=== PATIENT | female | born 2005 | race American Indian/Alaskan Native ===

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

== ENCOUNTER 2024-03-12 16:05 | Outpatient (AMB) | payer OTHER, SELFPAY ==
--- NOTE | 2024-03-12 16:05 | A.OFFPC_ITS ---
Vital Signs 03/12/24 16:06 Height 4 ft 11 in Weight 167 lb 6 oz BMI 33.8 BP 100/74 Blood Pressure Location Rt brachial Position Sitting Respiration 14 Pulse 105 H Pulse Source Pulse Oximeter Temp 97.6 F Temp Source Temporal Artery Scan Pulse Oximetry (%) 98 Oxygen Delivery Method Room Air Intake Visit Reasons: Ear Chek Bottle House Pumper Required: No Accompanied by: Aunt Allergies No Known Allergies Allergy (Verified 03/12/24 16:17) Medication List - Last Reconciled 03/12/24 by Joey Bailon CNP albuterol sulfate 90 mcg/actuation (Ventolin HFA) 2 puffs PO Q4-6H PRN inhalational spacing device (Aerochamber MV spacer) As directed trazodone 50 mg PO BEDTIME PRN Tobacco use date assessed: 03/12/24 Dental Screening Dental Screen Date: 03/12/24 Did you have a dental visit in the last 12 months?: No Did you have a dental problem in the last 6 months where you did not have access to dental care?: No Was dental information given to patient?: Yes HPI HPI Comments History of Present Illness Details 18-year-old female, accompanied by her a unt, presents with complaints of clogged left ear for the past 1 week. She notes associate mild pain in the ear and left sided headache. She has been taking ibuprofen 800 mg was daily as needed. No hearing impairment. No fever, chills, body aches, fatigue or weakness. [facility] Medical History (Updated 03/12/24 @ 16:24 by Joey Bailon CNP) Encounter to establish care Branchial cleft cyst Mild intermittent asthma Depression Surgical History (Updated 03/12/24 @ 16:14 by SUSHMA Buckner) History of biopsy No pertinent past surgical history Family History Mother Asthma Social History Household Members: Family Both parents involved: Yes Caregiver staying overnight: No Housing: Apartment Are you a primary daycare manager to a significant other at home: No Do you presently have visiting nurse or other home services: No 75 years or older and lives alone: No Alcohol intake: never Patient Tobacco Use Status: Never used Tobacco e-Cigarette/Vaping Use: Former Use Second Hand Smoke Exposure: No service: No Current occupational status: unemployed Cognitive needs: No Hearing needs: No Vision needs: Yes Questionnaire Thrive Questionnaire Date Thrive assessed: 12/30/22 HIRAM-7 AMB Questionnaire HIRAM-7 Date HIRAM - 7 assessed: 12/30/22 Source: Developed by Drs. Lang Sauer, Kathy Birmingham, Barry Lay and colleagues, with an educational shree from [employer]. Review of Systems Const Details: Const Denies chills, Denies fatigue, Denies fever(s), Reports headache(s) and Denies weakness ENT Reports as per HPI Card Denies chest pain, Denies lightheadedness, Denies dyspnea and Denies other (Palpitations) Resp Denies cough, Denies dyspnea, Denies wheezing and Denies other ( shortness of breath) GI Denies abdominal pain, Denies melena, Denies hematochezia, Denies change in bowel habits, Denies dyspepsia and Denies nausea Denies hematuria and Denies dysuria Musc Denies abnormal gait, Denies myalgias, Denies arthralgias, Denies numbness and Denies tingling Skin/Breast Denies rash, Denies unusual bruising and Denies wounds Neuro Denies abnormal gait, Denies dizziness, Denies headache(s), Denies memory loss, Denies numbness, Denies Sensory deficit (Neuro), Denies tingling and Denies weakness Psych Denies anxiety, Denies depression, Denies memory loss Endo Denies cold intolerance, Denies fatigue, Denies heat intolerance, Denies polydipsia and Denies polyuria Aller/Immun Denies wheezing Physical exam (Primary Care) Vital Signs: Last Vital Signs Temp 97.6 F 03/12/24 16:06 Pulse 105 H 03/12/24 16:06 Resp 14 03/12/24 16:06 BP 100/74 03/12/24 16:06 Pulse Ox 98 03/12/24 16:06 Oxygen Delivery Method Room Air 03/12/24 16:06 BMI result Body Mass Index 33.8 Tobacco/Smoking Status: Tobacco use Status Tobacco use date assessed 03/12/24 03/12/24 16:14 Patient Tobacco Use Status Never used Tobacco 03/12/24 16:14 e-Cigarette/Vaping Use Former Use 03/12/24 16:14 Thrive Assessment: Date of Thrive Assessment Date Thrive assessed 12/30/22 03/12/24 16:14 Const Other: General: no acute distress and well developed Nutritional Appearance: well nourished Orientation/consciousness: patient oriented x3 HENMT Head is normocephalic Left TM with significant erythema, no bulging, edema, or exudate Right ear canal and TM is normal Nasal turbinates and oropharynx are pink and moist Sinuses are nontender with palpation No auricular or cervical lymphadenopathy Eyes General: appearance normal, both eyes and all related structures Pupils: Equal, round and reactive pupils present EOM: EOMs intact bilaterally Resp Effort & Inspection: normal respiratory effort Auscultation: clear to auscultation bilaterally Cardio Rate: regular rate Rhythm: regular rhythm Heart sounds: S1 normal heart sound present, S2 normal heart sound present, no gallops, no murmurs and no rubs GI Palpation (GI): No Abdominal aortic bruit present, Soft to palpation, nontender, No hepatosplenomegaly present and No Rebound tenderness present Auscultation: normal bowel sounds General: Yes no CVA tenderness Back/Spine/Pelvis Back: no CVA tenderness Cervical Spine: cervical ROM normal and No Cervical spine tenderness Thoracic/Lumbar Spine: thoraco-lumbar ROM normal, No pain with thoraco-lumbar ROM, No thoracic spinal tenderness and No lumbar spinal tenderness Extrem General: Yes normal to inspection, No edema and No calf tenderness Skin General: warm and dry. Normal skin color. Normal skin turgor Neuro General: patient oriented x3, gait normal and no focal neuro deficit Cranial nerves: Yes Equal, round and reactive pupils present Cognition (Neuro): normal cognition Gait exam (Neuro): Normal gait present Sensory Exam: No Sensory deficit (Neuro) Psych Appearance: grossly normal Affect: normal affect Attitude: cooperative Thought process: Normal thought process present Assessment and Plan Assessment & Plan (1) Left otitis media: Code(s): H66.92 - Otitis media, unspecified, left ear Plan: Left ear pain x1 week Left TM with significant erythema, no bulging, edema, or exudate Z-Chaol and ibuprofen ordered. Take as prescribed. Instructed on the risks, benefits, and potential side effects of the medications Follow-up with worsening or new symptoms Verbalized understanding and agreed with treatment plan Medications: New azithromycin (Zithromax Z-Chalo) For 250 mg dose pack: take 500 mg today (day 1), then 250 mg for 4 days (days 2-5) PO 6 tabs 0RF ibuprofen 600 mg PO Q8H PRN 30 tabs 0RF pain Coding Level of Care Code Est Pt Level 3 (31454) Diagnoses Left otitis media H66.92
[2024-03-12 16:06] VITALS: BP 100/74; PULSE 105; RESP 14; TEMP 36.4; O2SAT 98; BMI 33.8
== END 2024-03-12 16:39 | disposition home or self-care (01) ==
PROVIDERS: PCP Nurse Practitioner Family; Visit Provider Nurse Practitioner Family
DX: H66.92 Otitis media, unspecified, left ear (principal)
CPT/HCPCS: 99213

== ENCOUNTER 2024-05-02 15:26 | Outpatient (AMB) | payer OTHER, SELFPAY ==
--- NOTE | 2024-05-02 15:27 | A.OFFPC_ITS ---
Vital Signs 05/02/24 15:29 Height 4 ft 11 in Weight 168 lb BMI 33.9 BP 112/78 Blood Pressure Location Lt brachial Position Sitting Pulse 96 Pulse Source Pulse Oximeter Pulse Oximetry (%) 99 Oxygen Delivery Method Room Air Intake Visit Reasons: PE Intake Note: Patient is here today for a physical and [facility] [employer] Clam Shucking Machine Tender Required: No Can Striper: Present Accompanied by: Family/Other Allergies No Known Allergies Allergy (Verified 05/02/24 15:57) Medication List - Last Reconciled 05/02/24 by Gary Marcano MD trazodone 50 mg PO BEDTIME PRN Tobacco use date assessed: 05/02/24 Dental Screening Dental Screen Date: 05/02/24 Did you have a dental visit in the last 12 months?: No Did you have a dental problem in the last 6 months where you did not have access to dental care?: No Was dental information given to patient?: No HPI PE HPI Details 18-year-old female presents to the offic e requesting an annual physical. [facility] Medical History (Updated 05/02/24 @ 15:58 by Gary Marcano MD) Hodgkins lymphoma Encounter to establish care Branchial cleft cyst Mild intermittent asthma Depression Surgical History History of biopsy Family History Mother Asthma Social History Household Members: Family Both parents involved: Yes Caregiver staying overnight: No Housing: Apartment Are you a primary residential child care counselor to a significant other at home: No Do you presently have visiting nurse or other home services: No 75 years or older and lives alone: No Alcohol intake: never Patient Tobacco Use Status: Never used Tobacco e-Cigarette/Vaping Use: Former Use Second Hand Smoke Exposure: No service: No Current occupational status: unemployed Cognitive needs: No Hearing needs: No Vision needs: Yes Questionnaire PHQ-9 Over the last 2 weeks, how often have you been bothered by any of the following problems? 1. Little interest or pleasure in doing things: not at all 2. Feeling down, depressed, or hopeless: not at all 3. Trouble falling or staying asleep, or sleeping too much: not at all 4. Feeling tired or having little energy: not at all 5. Poor appetite or overeating: not at all 6. Feeling bad about yourself - or that you are a failure or have let yourself or your family down: not at all 7. Trouble concentrating on things, such as reading the newspaper or watching television: not at all 8. Moving or speaking so slowly that other people could have noticed. Or the opposite - being so fidgety or restless that you have been moving around a lot more than usual: not at all 9. Thoughts that you would be better off or of hurting yourself in some way: not at all Total score: 0 Depression Screening Interpretation: Negative Depression Screening Done: Yes Source: Developed by Drs. Lang Sauer, Kathy Birmingham, Barry Lay and colleagues, with an educational shree from [employer]. Thrive Questionnaire Date Thrive assessed: 05/02/24 I am a: Patient What is your living situation today?: I have a steady place to live Within the past 12 months, did the food you bought not last and you didn't have the money to get more?: Never true Within the past 12 months, did you worry whether your food would run out before you got money to buy more?: Never true Do you have trouble paying for medicines?: No Do you have trouble getting transportation to medical appointments?: No Do you have trouble paying your heating and electricity bill?: No Do you have trouble taking care of your child, family member or friend?: No Do you have trouble with day-to-day activities such as bathing, preparing meals, shopping, managing finances, etc.?: No Are you currently unemployed and looking for a job?: No Are you interested in more education?: No Currently or been in a relationship where the following occur: no concerns reported THRIVE Score: 0 AUDIT C Alcohol Use Questionnaire (AUDIT-C) 1. How often do you have a drink containing alcohol?: Never Total Score: 0 HIRAM-7 AMB Questionnaire HIRAM-7 Date HIRAM - 7 assessed: 05/02/24 Feeling nervous, anxious, or on edge: 0 = Not at all Not being able to stop or control worryin = Not at all Worrying too much about different things: 0 = Not at all Trouble relaxin = Not at all Being so restless that it is hard to sit still: 0 = Not at all Becoming easily annoyed or irritable: 0 = Not at all Feeling afraid as if something awful might happen: 0 = Not at all Total HIRAM-7 score (0-4 normal; 5-9 mild; 10-14 moderate; 15-21 severe): 0 Source: Developed by Drs. Lang Sauer, Kathy Birmingham, Barry Lay and colleagues, with an educational shree from [employer]. Physical exam (Primary Care) Vital Signs: Last Vital Signs Pulse 96 05/02/24 15:29 BP 112/78 05/02/24 15:29 Pulse Ox 99 05/02/24 15:29 Oxygen Delivery Method Room Air 05/02/24 15:29 BMI result Body Mass Index 33.9 Tobacco/Smoking Status: Tobacco use Status Tobacco use date assessed 05/02/24 05/02/24 15:35 Patient Tobacco Use Status Never used Tobacco 05/02/24 15:35 e-Cigarette/Vaping Use Former Use 05/02/24 15:35 PHQ-9: PHQ-9 Score PHQ-9: Total score 0 05/02/24 15:35 Depression Screening Interpretation: Negative Thrive Assessment: Date of Thrive Assessment Date Thrive assessed 05/02/24 05/02/24 15:35 Currently or been in a relationship where the following occur: no concerns reported Const General: cooperative and healthy appearing Nutritional Appearance: well nourished Orientation/consciousness: patient oriented x3 Limitations: no limitations HENMT Head: Yes normal to inspection Eyes General: appearance normal, both eyes and all related structures Neck Neck: Yes normal visual inspection Chest Chest palpation & inspection: normal palpation of entire chest wall Resp Effort & Inspection: normal respiratory effort Neuro General: patient oriented x3 Assessment and Plan Assessment & Plan (1) Hodgkins lymphoma: Comment: Dx 03/2023. Followed by Dr. Mejía [facility] oncology and Dr. Noriega radiation oncology Code(s): C81.90 - Hodgkin lymphoma, unspecified, unspecified site Plan: Condition is stable. (2) Annual physical exam: Code(s): Z00.00 - Encounter for general adult medical examination without abnormal findings Plan: Blood work ordered. Will call with results. Orders: Orders Basic Metabolic Panel Today C81.90 - Hodgkin lymphoma, unspecified, unspecified site Complete Blood Count no Diff Today C81.90 - Hodgkin lymphoma, unspecified, unspecified site Liver Panel Today C81.90 - Hodgkin lymphoma, unspecified, unspecified site Thyroid Stimulating Hormone Today C81.90 - Hodgkin lymphoma, unspecified, unspecified site UA and rflx microscopic Today C81.90 - Hodgkin lymphoma, unspecified, unspecified site Medications: Discontinued inhalational spacing device (Aerochamber MV spacer) Discontinued Reason: Doctor's Order As directed 1 ea 0RF albuterol sulfate 90 mcg/actuation (Ventolin HFA) Discontinued Reason: Doctor's Order 2 puffs PO Q4-6H PRN 18 ea 1RF for wheezing J45.20 - Mild intermittent asthma, uncomplicated ibuprofen Discontinued Reason: Doctor's Order 600 mg PO Q8H PRN 30 tabs 0RF pain Coding Level of Care Code Est Pt Prev Care 18-39y(02459) Diagnoses Hodgkins lymphoma C81.90 Annual physical exam Z00.00
[2024-05-02 15:29] VITALS: BP 112/78; PULSE 96; O2SAT 99; BMI 33.9
== END 2024-05-02 16:36 | disposition home or self-care (01) ==
PROVIDERS: PCP Nurse Practitioner Family; Visit Provider Internal Medicine
DX: Z00.00 Encounter for general adult medical examination without abnormal findings (principal); C81.90 Hodgkin lymphoma, unspecified, unspecified site
CPT/HCPCS: 99395

== ENCOUNTER 2024-05-06 15:32 | Outpatient (REF) | payer OTHER, SELFPAY ==
[2024-05-06 16:05] LABS: Hematocrit 40.1 % (37.0-47.0); Hemoglobin 13.5 g/dl (12.0-16.0); Mean Corpuscular HGB Conc 33.7 g/dl (31.0-35.0); Mean Corpuscular Hemoglobin 27.7 pg (27.0-33.0); Mean Corpuscular Volume 82.2 fL (80.0-98.0); Mean Platelet Volume 10.4 fL (9.4-12.3); Platelet Count 231 X10*3/uL (160-400); Red Blood Count 4.88 X10*6/uL (4.20-5.50); Red Cell Distribution Width 13.6 % (11.0-16.0); White Blood Count 4.5 X10*3/uL (4.8-10.8)
[2024-05-06 16:38] LABS: Alanine Aminotransferase 39 U/L (0-31); Albumin Level 4.2 g/dL (3.5-5.0); Alkaline Phosphatase 118 U/L (39-117); Anion Gap 11 (12-20); Aspartate Amino Transferase 33 U/L (5-31); Bilirubin Direct 0.2 mg/dL (0.0-0.5); Bilirubin Total 0.5 mg/dL (0.0-1.0); Blood Urea Nitrogen 7 mg/dL (9-16); Calcium 9.7 mg/dL (8.4-10.2); Carbon Dioxide 25 mmol/L (22-29); Chloride 108 mmol/L (96-108); Estimated Glomerular Filt Rate > 60; Glucose Random 93 mg/dL (60-115); Sodium 140 mmol/L (135-145); Total Protein 7.4 g/dL (6.5-8.0)
[2024-05-06 16:52] LABS: Thyroid Stimulating Hormone 1.32 uIU/mL (0.32-4.0)
[2024-05-06 17:50] LABS: Appearance Urine Clear; Color Urine Yellow; Glucose Urine UA Negative (Negative); Leukocyte Esterase Urine Trace (Negative); Nitrite Urine Negative (Negative); PH 6.5 (5.0-9.0); UMIC TRIGGER UA YES; Urine Blood Negative (Negative); Urine Ketones Trace mg/dL (Negative); Urine Protein Trace mg/dL (Neg-Trace)
[2024-05-06 17:56] LABS: Bacteria Urine None Seen (None Seen); Hyaline Casts Urine 0-2 /LPF (0-2); RBC Urine 0-2 /HPF (0-2); WBC Urine 0-5 /HPF (0-5)
== END 2024-05-06 15:33 | disposition home or self-care (01) ==
LOC: HO.LAB 15:32
PROVIDERS: PCP Internal Medicine; Visit Provider Internal Medicine
DX: C81.90 Hodgkin lymphoma, unspecified, unspecified site (principal)
CPT/HCPCS: 36415; 80048; 80076; 81001; 84443; 85027

== ENCOUNTER 2025-05-08 14:28 | Outpatient (AMB) | payer OTHER, SELFPAY ==
--- NOTE | 2025-05-08 14:33 | A.OFFPC_ITS ---
Vital Signs 05/08/25 14:35 Height 4 ft 11 in Weight 151 lb 2 oz BMI 30.5 BP 110/72 Blood Pressure Location Lt brachial Position Sitting Pulse 76 Pulse Source Pulse Oximeter Temp 97.1 F Temp Source Temporal Artery Scan Pulse Oximetry (%) 100 Oxygen Delivery Method Room Air Intake Visit Reasons: Annual Exam Intake Note: Patient is here today for a physical. Assistant Front Desk Manager Required: No Director Of Program Management: Not Required per policy Accompanied by: Self / Same As Patient Allergies No Known Allergies Allergy (Verified 05/08/25 14:35) Medication List - Last Reconciled 05/08/25 by Gary Marcano MD No Known Home Meds Tobacco use date assessed: 05/08/25 Dental Screening Dental Screen Date: 05/08/25 Did you have a dental visit in the last 12 months?: Yes Did you have a dental problem in the last 6 months where you did not have access to dental care?: No Was dental information given to patient?: Patient has dentist [facility] Medical History (Updated 05/08/25 @ 15:04 by Gary Marcano MD) Annual physical exam Hodgkins lymphoma Encounter to establish care Branchial cleft cyst Mild intermittent asthma Depression Surgical History History of biopsy Family History Mother Asthma Social History Household Members: Family Both parents involved: Yes Caregiver staying overnight: No Housing: Apartment Are you a primary hemodialysis patient care specialist to a significant other at home: No Do you presently have visiting nurse or other home services: No 75 years or older and lives alone: No Alcohol intake: never Patient Tobacco Use Status: Never used Tobacco e-Cigarette/Vaping Use: Former Use Second Hand Smoke Exposure: No service: No Current occupational status: unemployed Cognitive needs: No Hearing needs: No Vision needs: Yes Questionnaire PHQ-9 Over the last 2 weeks, how often have you been bothered by any of the following problems? 1. Little interest or pleasure in doing things: not at all 2. Feeling down, depressed, or hopeless: not at all 3. Trouble falling or staying asleep, or sleeping too much: not at all 4. Feeling tired or having little energy: not at all 5. Poor appetite or overeating: not at all 6. Feeling bad about yourself - or that you are a failure or have let yourself or your family down: not at all 7. Trouble concentrating on things, such as reading the newspaper or watching television: not at all 8. Moving or speaking so slowly that other people could have noticed. Or the opposite - being so fidgety or restless that you have been moving around a lot more than usual: not at all 9. Thoughts that you would be better off or of hurting yourself in some way: not at all Total score: 0 Depression Screening Interpretation: Negative Depression Screening Done: Yes Source: Developed by Drs. Lang Sauer, Kathy Birmingham, Barry Lay and colleagues, with an educational shree from [employer]. Thrive Questionnaire Date Thrive assessed: 05/01/25 I am a: Patient What is your living situation today?: I have a steady place to live Within the past 12 months, did the food you bought not last and you didn't have the money to get more?: Often true Within the past 12 months, did you worry whether your food would run out before you got money to buy more?: Never true Do you have trouble paying for medicines?: No Do you have trouble getting transportation to medical appointments?: No Do you have trouble paying your heating and electricity bill?: No Do you have trouble taking care of your child, family member or friend?: No Do you have trouble with day-to-day activities such as bathing, preparing meals, shopping, managing finances, etc.?: No Are you currently unemployed and looking for a job?: No Are you interested in more education?: Yes Please select the resources that you would like help with: None Currently or been in a relationship where the following occur: No concerns reported THRIVE Score: 1 AUDIT C Alcohol Use Questionnaire (AUDIT-C) 1. How often do you have a drink containing alcohol?: Monthly or less 2. How many drinks containing alcohol do you have on a typical day when you are drinking?: 1 or 2 3. How often do you have six or more drinks on one occasion?: Never Total Score: 1 HIRAM-7 AMB Questionnaire HIRAM-7 Date HIRAM - 7 assessed: 05/08/25 Feeling nervous, anxious, or on edge: 1 = Several days Not being able to stop or control worryin = Several days Worrying too much about different things: 1 = Several days Trouble relaxin = Several days Being so restless that it is hard to sit still: 0 = Not at all Becoming easily annoyed or irritable: 3 = Nearly every day Feeling afraid as if something awful might happen: 1 = Several days Total HIRAM-7 score (0-4 normal; 5-9 mild; 10-14 moderate; 15-21 severe): 8 Source: Developed by Drs. Lang Sauer, Kathy Birmingham, Barry Lay and colleagues, with an educational shree from [employer]. Physical exam (Primary Care) Vital Signs: Last Vital Signs Temp 97.1 F 05/08/25 14:35 Pulse 76 05/08/25 14:35 BP 110/72 05/08/25 14:35 Pulse Ox 100 05/08/25 14:35 Oxygen Delivery Method Room Air 05/08/25 14:35 BMI result Body Mass Index 30.5 Tobacco/Smoking Status: Tobacco use Status Tobacco use date assessed 05/08/25 05/08/25 14:39 Patient Tobacco Use Status Never used Tobacco 05/08/25 14:39 e-Cigarette/Vaping Use Former Use 05/08/25 14:39 PHQ-9: PHQ-9 Score PHQ-9: Total score 0 05/08/25 14:39 Depression Screening Interpretation: Negative Thrive Assessment: Date of Thrive Assessment Date Thrive assessed 05/01/25 05/08/25 14:39 Currently or been in a relationship where the following occur: No concerns reported Coding Level of Care Code Est Pt Prev Care [id number]) Diagnoses Hodgkins lymphoma C81.90 Annual physical exam Z00.00 Assessment & Plan Assessment & Plan (1) Hodgkins lymphoma: Comment: Dx 03/2023. Followed by Dr. Mejía [facility] oncology and Dr. Noriega radiation oncology Code(s): C81.90 - Hodgkin lymphoma, unspecified, unspecified site Category: Medical Plan: Condition is stable (2) Annual physical exam: Code(s): Z00.00 - Encounter for general adult medical examination without abnormal findings Category: Medical Plan: Will get bw from [facility] Plan History of Present Illness - The patient is a 19-year-old female presenting with an annual physical examination. - Breast pain: The patient reports significant breast pain, particularly on the sides, exacerbated by wearing regular bras, which she describes as causing too much pressure. - She has considered breast reduction surgery but was advised to wait until after age 18. - Lymphoma: The patient's lymphoma is currently stable, with a recent follow-up two weeks ago at the [facility] showing normal blood work results. - Blurry vision: The patient reports blurry vision and has scheduled an appointment with an eye doctor in June. - Social and lifestyle factors: The patient works at a daycare, occasionally uses marijuana, and does not consume alcohol. - She lives with her mother, sister, and her sister's children, and she is the youngest of three siblings. - She has taken a break from gym activities but plans to resume, focusing on exercises like the Stairmaster and treadmill. - Her diet is variable, with occasional soda consumption, which she acknowledges can lead to headaches if not consumed regularly. Social History - Employment: Works at a daycare. - Substance use: Occasionally uses marijuana, does not consume alcohol. - Living situation: Resides with mother, sister, and sister's children. - Exercise: Previously attended gym, plans to resume activities like Stairmaster and treadmill. - Diet: Variable diet with occasional soda consumption, leading to headaches if not consumed. Review of Systems - Breast: Reports significant pain, particularly on the sides. - Hematologic/Lymphatic: Denies any new symptoms related to lymphoma, reports stability. - Ophthalmologic: Reports blurry vision, awaiting eye doctor appointment. - Neurological: Reports headaches associated with lack of soda consumption. Physical Exam General: Cooperative and healthy appearing Nutritional Appearance: Well nourished Orientation/consciousness: Patient oriented x3 Limitations: No limitations Head: Normal to inspection General: Appearance normal, both eyes and all related structures Neck: Normal visual inspection Chest: Normal palpation of entire chest wall Respiratory: Normal respiratory effort Neurology: Patient oriented x3 Results - Labs: Recent blood work at [facility], results normal. Plan 1. Breast Pain - Discussed potential for breast reduction surgery, advised to contact insurance for coverage details. - Recommended weight loss as a potential alleviating factor. 2. Lymphoma (Stable) - Continue regular follow-ups and monitoring as per oncology recommendations. 3. Blurry Vision - Scheduled appointment with an eye doctor for further evaluation. Discussion Notes During the visit, we discussed the patient's breast pain and the possibility of breast reduction surgery. I advised her to contact her insurance company to inquire about coverage options and mentioned that weight loss might help alleviate her symptoms. We also reviewed her stable lymphoma status and emphasized the importance of regular follow-ups. For her blurry vision, she has an upcoming appointment with an engineering specialist technician for further evaluation. We discussed the importance of maintaining a healthy lifestyle, including regular exercise and a balanced diet, while avoiding excessive soda consumption. Patient Instructions - Contact your insurance company to discuss coverage for breast reduction surgery. - Maintain regular follow-ups for lymphoma monitoring. - Attend your scheduled eye doctor appointment in June. - Resume regular exercise and maintain a balanced diet, limiting soda intake.
[2025-05-08 14:35] VITALS: BP 110/72; PULSE 76; TEMP 36.2; O2SAT 100; BMI 30.5
== END 2025-05-08 14:59 | disposition home or self-care (01) ==
LOC: HO.HMCH 14:28
PROVIDERS: PCP Internal Medicine; Visit Provider Internal Medicine
DX: C81.90 Hodgkin lymphoma, unspecified, unspecified site (principal); Z00.00 Encounter for general adult medical examination without abnormal findings

== ENCOUNTER → 2025-05-08 14:28 | Outpatient (BNVA) | payer OTHER, SELFPAY | PROVIDERS: PCP Internal Medicine; Visit Provider Internal Medicine | DX: Z00.00 Encounter for general adult medical examination without abnormal findings (principal); C81.90 Hodgkin lymphoma, unspecified, unspecified site; N64.4 Mastodynia; H53.8 Other visual disturbances | CPT/HCPCS: 99395 ==